=== PATIENT | female | born 1980 | race Caucasian/White ===

== ENCOUNTER 2017-04-02 07:49 | Emergency (ER) | payer MEDICAID ==
[~2017-04-02] VITALS: Ht 160 cm; Wt 83.5 kg
[~2017-04-02 07:49] MED LIST: ASPI-664 PO; AZIT250T94 PO; CETI-240 PO; IBUP-1542 PO; POLY15DR42 BOTH EYES
[2017-04-02 07:51] VITALS: Ht 160 cm; Wt 83.5 kg
--- NOTE | 2017-04-02 08:29 | ERD ---
ER Documentation Chief Complaint Chief Complaint sorethroat x1 days, lump right side of neck HPI 37y/o female patient with no significant medical history,presents to the emergency department c/o sore throat, that started 1 day ago. pain is sharp, rated 7/10, radiated to neck and ears. The symptoms are associated with subjective fever, global headache and bilateral hand arthralgias. Denies chills , N/V/D. No history of previous episodes. Treatment attempted: None ROS SYSTEMIC symptoms: + fever, chills, no night sweats, no weight loss EYE symptoms: No blurred vision, no eye discharge OTOLARYNGEAL symptoms: HPI CARDIOVASCULAR symptoms: No chest pain or discomfort, no palpitations. PULMONARY symptoms: No dyspnea, no cough, no wheezing. GASTROINTESTINAL symptoms: No abdominal pain, no nausea, no vomiting, no diarrhea MUSCULOSKELETAL symptoms: No arthralgias, no muscle aches. NEUROLOGY symptoms: No confusion, no syncope, no numbness or tingling. SKIN no rashes All systems reviewed and are negative except as per history of present illness. Medications Home Meds Active Scripts Ibuprofen* (Motrin*) 600 Mg Tab, 600 MG PO Q8, #30 TAB Prov:NATALIA LUIS MD 04/02/17 Azithromycin* (Zithromax*) 250 Mg Tablet, 250 MG PO DAILY for 4 Days, TAB Prov:NATALIA LUIS MD 04/02/17 Ibuprofen* (Motrin*) 600 Mg Tab, 600 MG PO Q6, #30 TAB Prov:CARRIE CHAVIRA 05/02/16 Azithromycin* (Zithromax*) 250 Mg Tablet, 250 MG PO .SHIRACK DIRECTED, #6 TAB TAKE 500 MG (2 TABS) THE FIRST DAY THEN 250 MG (1 TAB) DAYS 2-5 Prov:CARRIE CHAVIRA 05/02/16 Artificial Tears* (Artificial Tears* Ophth) 15 ml Opht, 2 DROP BOTH EYES Q4 for DRY EYES for 7 Days, EA Prov:NAKUL BLANTON PA-C 09/19/15 Cetirizine Hcl* (Cetirizine Hcl*) 10 Mg Tablet, 10 MG PO DAILY, #30 TAB Prov:NAKUL BLANTON PA-C 09/19/15 Reported Medications Aspirin (Aspirin Low Dose) 81 Mg Tablet.dr, PO 10/23/11 Allergies Allergies: Coded Allergies: Penicillins (Verified Allergy, Mild, RASH, 10/23/11) PMhx/Soc History of Surgery: Yes (GALLBLADDER, ) Anesthesia Reaction: No Hx Neurological Disorder: No Hx Respiratory Disorders: No Hx Cardiac Disorders: No Hx Psychiatric Problems: No Hx Miscellaneous Medical Probl: No Hx Alcohol Use: No Hx Substance Use: No Hx Tobacco Use: No Smoking Status: Never smoker Physical Exam Vitals Vital Signs Date Time Temp Pulse Resp B/P Pulse Ox O2 Delivery O2 Flow Rate FiO2 04/02/17 07:51 100.2 89 18 140/81 98 Physical Exam Patient is in no acute distress, vital signs stable. Alert and fully oriented. EYES: PERRLA, EOMI, Sclera and conjunctiva appear normal. EARS: Canals clear, tympanic membranes WNL THROAT: Erythematous oropharynx, bilateral tonsillar enlargement with suppurative exudates NECK: Supple, + anterior tender lymphadenopathy. Full ROM without pain or tenderness. HEART: RRR, no rubs, murmurs, clicks or gallops. LUNGS: Clear to auscultation. ABDOMEN: Soft, non-tender without masses or hepatosplenomegaly. EXTREMITIES: No edema bilaterally. MUSC: Full ROM, no deformity, normal back exam Results 24 hrs Laboratory Tests Test 04/02/17 08:10 Monoscreen Negative Procedures/MDM 37y/o female patient, previously healthy, presents to the ED c/o sore throat, headache and fever for 3 days. Vital signs stable except for mild elevated temperature, Physical exam revealed bilateral tonsillar enlargement with exudate. Differential diagnosis include but not limited to: Tonsillitis viral/ bacterial, pharyngeal abscesses, tonsillar abscess, parotitis. Pertinent Data: Monospot negative Physical examination and clinical presentation consistent most likely with acute suppurative tonsillitis. During the ED course the patient remained stable, no new complaints. Results and medical impression discussed with patient who agrees with management. The patient will be discharged home with a Rx for azithromycin for 5 days and ibuprofen as needed for pain Side effects of prescribed NSAID medication (GI distress, edema, bleeding, HTN) were reviewed. If symptoms persist, worsen or new symptoms develop, then patient is instructed to follow-up with the primary care provider. If the patient is unable to see the primary care provider, then return to the ED immediately. Departure Diagnosis: Primary Impression: Acute suppurative tonsillitis Condition: Stable Additional Instructions: Muchas rinku por [facility] para roque servicio. Esperamos que en roque visita a la piper de emergencia roque problema medico haya sido solucionado y que se sienta mucho mejor. Para estar seguros que roque mejoria sigue en proceso, le pedimos el favor de hacer nancy vanessa de seguimiento medico con roque doctor primario en los proximos 2-4 nettles. Lleve con usted estos documentos y las medicinas recetadas. Si miriam sintomas empeoran y no puede aidee a roque doctor, por favor regrese a piper de emergencia. En kit que usted no tenga un mdico de atencin primaria: Llame al mdico o clnica comunitaria de referencia que aparece abajo morelia las horas de consultorio para hacer nancy vanessa para que le vean. CLINICAS: [facility] [phone] [facility] [phone] [facility]. [facility] [phone] [facility]. [facility] [phone] [facility]. [place] [id number] [phone] [facility]. [phone] MD Apr 02, 2017 08:29 NATALIA LUIS MD Apr 02, 2017 08:29
--- NOTE | 2017-04-02 08:29 | ERD ---
ER Documentation Chief Complaint Chief Complaint sorethroat x1 days, lump right side of neck HPI 37y/o female patient with no significant medical history,presents to the emergency department c/o sore throat, that started 1 day ago. pain is sharp, rated 7/10, radiated to neck and ears. The symptoms are associated with subjective fever, global headache and bilateral hand arthralgias. Denies chills , N/V/D. No history of previous episodes. Treatment attempted: None ROS SYSTEMIC symptoms: + fever, chills, no night sweats, no weight loss EYE symptoms: No blurred vision, no eye discharge OTOLARYNGEAL symptoms: HPI CARDIOVASCULAR symptoms: No chest pain or discomfort, no palpitations. PULMONARY symptoms: No dyspnea, no cough, no wheezing. GASTROINTESTINAL symptoms: No abdominal pain, no nausea, no vomiting, no diarrhea MUSCULOSKELETAL symptoms: No arthralgias, no muscle aches. NEUROLOGY symptoms: No confusion, no syncope, no numbness or tingling. SKIN no rashes All systems reviewed and are negative except as per history of present illness. Medications Home Meds Active Scripts Ibuprofen* (Motrin*) 600 Mg Tab, 600 MG PO Q8, #30 TAB Prov:NATALIA LUIS MD 04/02/17 Azithromycin* (Zithromax*) 250 Mg Tablet, 250 MG PO DAILY for 4 Days, TAB Prov:NATALIA LUIS MD 04/02/17 Ibuprofen* (Motrin*) 600 Mg Tab, 600 MG PO Q6, #30 TAB Prov:CARRIE CHAVIRA 05/02/16 Azithromycin* (Zithromax*) 250 Mg Tablet, 250 MG PO .SHIRACK DIRECTED, #6 TAB TAKE 500 MG (2 TABS) THE FIRST DAY THEN 250 MG (1 TAB) DAYS 2-5 Prov:CARRIE CHAVIRA 05/02/16 Artificial Tears* (Artificial Tears* Ophth) 15 ml Opht, 2 DROP BOTH EYES Q4 for DRY EYES for 7 Days, EA Prov:NAKUL BLANTON PA-C 09/19/15 Cetirizine Hcl* (Cetirizine Hcl*) 10 Mg Tablet, 10 MG PO DAILY, #30 TAB Prov:NAKUL BLANTON PA-C 09/19/15 Reported Medications Aspirin (Aspirin Low Dose) 81 Mg Tablet.dr, PO 10/23/11 Allergies Allergies: Coded Allergies: Penicillins (Verified Allergy, Mild, RASH, 10/23/11) PMhx/Soc History of Surgery: Yes (GALLBLADDER, ) Anesthesia Reaction: No Hx Neurological Disorder: No Hx Respiratory Disorders: No Hx Cardiac Disorders: No Hx Psychiatric Problems: No Hx Miscellaneous Medical Probl: No Hx Alcohol Use: No Hx Substance Use: No Hx Tobacco Use: No Smoking Status: Never smoker Physical Exam Vitals Vital Signs Date Time Temp Pulse Resp B/P Pulse Ox O2 Delivery O2 Flow Rate FiO2 04/02/17 07:51 100.2 89 18 140/81 98 Physical Exam Patient is in no acute distress, vital signs stable. Alert and fully oriented. EYES: PERRLA, EOMI, Sclera and conjunctiva appear normal. EARS: Canals clear, tympanic membranes WNL THROAT: Erythematous oropharynx, bilateral tonsillar enlargement with suppurative exudates NECK: Supple, + anterior tender lymphadenopathy. Full ROM without pain or tenderness. HEART: RRR, no rubs, murmurs, clicks or gallops. LUNGS: Clear to auscultation. ABDOMEN: Soft, non-tender without masses or hepatosplenomegaly. EXTREMITIES: No edema bilaterally. MUSC: Full ROM, no deformity, normal back exam Results 24 hrs Laboratory Tests Test 04/02/17 08:10 Monoscreen Negative Procedures/MDM 37y/o female patient, previously healthy, presents to the ED c/o sore throat, headache and fever for 3 days. Vital signs stable except for mild elevated temperature, Physical exam revealed bilateral tonsillar enlargement with exudate. Differential diagnosis include but not limited to: Tonsillitis viral/ bacterial, pharyngeal abscesses, tonsillar abscess, parotitis. Pertinent Data: Monospot negative Physical examination and clinical presentation consistent most likely with acute suppurative tonsillitis. During the ED course the patient remained stable, no new complaints. Results and medical impression discussed with patient who agrees with management. The patient will be discharged home with a Rx for azithromycin for 5 days and ibuprofen as needed for pain Side effects of prescribed NSAID medication (GI distress, edema, bleeding, HTN) were reviewed. If symptoms persist, worsen or new symptoms develop, then patient is instructed to follow-up with the primary care provider. If the patient is unable to see the primary care provider, then return to the ED immediately. Departure Diagnosis: Primary Impression: Acute suppurative tonsillitis Condition: Stable Additional Instructions: Muchas rinku por [facility] para roque servicio. Esperamos que en roque visita a la piper de emergencia roque problema medico haya sido solucionado y que se sienta mucho mejor. Para estar seguros que roque mejoria sigue en proceso, le pedimos el favor de hacer nancy vanessa de seguimiento medico con roque doctor primario en los proximos 2-4 nettles. Lleve con usted estos documentos y las medicinas recetadas. Si miriam sintomas empeoran y no puede aidee a roque doctor, por favor regrese a piper de emergencia. En kit que usted no tenga un mdico de atencin primaria: Llame al mdico o clnica comunitaria de referencia que aparece abajo morelia las horas de consultorio para hacer nancy vanessa para que le vean. CLINICAS: [facility] [phone] [facility] [phone] [facility]. [facility] [phone] [facility]. [facility] [phone] [facility]. [place] [phone] [facility]. [phone] MD Apr 02, 2017 08:29 NATALIA LUIS MD Apr 02, 2017 08:29
--- NOTE | 2017-04-02 08:29 | ERD ---
ER Documentation Chief Complaint Chief Complaint sorethroat x1 days, lump right side of neck HPI 37y/o female patient with no significant medical history,presents to the emergency department c/o sore throat, that started 1 day ago. pain is sharp, rated 7/10, radiated to neck and ears. The symptoms are associated with subjective fever, global headache and bilateral hand arthralgias. Denies chills , N/V/D. No history of previous episodes. Treatment attempted: None ROS SYSTEMIC symptoms: + fever, chills, no night sweats, no weight loss EYE symptoms: No blurred vision, no eye discharge OTOLARYNGEAL symptoms: HPI CARDIOVASCULAR symptoms: No chest pain or discomfort, no palpitations. PULMONARY symptoms: No dyspnea, no cough, no wheezing. GASTROINTESTINAL symptoms: No abdominal pain, no nausea, no vomiting, no diarrhea MUSCULOSKELETAL symptoms: No arthralgias, no muscle aches. NEUROLOGY symptoms: No confusion, no syncope, no numbness or tingling. SKIN no rashes All systems reviewed and are negative except as per history of present illness. Medications Home Meds Active Scripts Ibuprofen* (Motrin*) 600 Mg Tab, 600 MG PO Q8, #30 TAB Prov:NATALIA LUIS MD 04/02/17 Azithromycin* (Zithromax*) 250 Mg Tablet, 250 MG PO DAILY for 4 Days, TAB Prov:NATALIA LUIS MD 04/02/17 Ibuprofen* (Motrin*) 600 Mg Tab, 600 MG PO Q6, #30 TAB Prov:CARRIE CHAVIRA 05/02/16 Azithromycin* (Zithromax*) 250 Mg Tablet, 250 MG PO .SHIRACK DIRECTED, #6 TAB TAKE 500 MG (2 TABS) THE FIRST DAY THEN 250 MG (1 TAB) DAYS 2-5 Prov:CARRIE CHAVIRA 05/02/16 Artificial Tears* (Artificial Tears* Ophth) 15 ml Opht, 2 DROP BOTH EYES Q4 for DRY EYES for 7 Days, EA Prov:NAKUL BLANTON PA-C 09/19/15 Cetirizine Hcl* (Cetirizine Hcl*) 10 Mg Tablet, 10 MG PO DAILY, #30 TAB Prov:NAKUL BLANTON PA-C 09/19/15 Reported Medications Aspirin (Aspirin Low Dose) 81 Mg Tablet.dr, PO 10/23/11 Allergies Allergies: Coded Allergies: Penicillins (Verified Allergy, Mild, RASH, 10/23/11) PMhx/Soc History of Surgery: Yes (GALLBLADDER, ) Anesthesia Reaction: No Hx Neurological Disorder: No Hx Respiratory Disorders: No Hx Cardiac Disorders: No Hx Psychiatric Problems: No Hx Miscellaneous Medical Probl: No Hx Alcohol Use: No Hx Substance Use: No Hx Tobacco Use: No Smoking Status: Never smoker Physical Exam Vitals Vital Signs Date Time Temp Pulse Resp B/P Pulse Ox O2 Delivery O2 Flow Rate FiO2 04/02/17 07:51 100.2 89 18 140/81 98 Physical Exam Patient is in no acute distress, vital signs stable. Alert and fully oriented. EYES: PERRLA, EOMI, Sclera and conjunctiva appear normal. EARS: Canals clear, tympanic membranes WNL THROAT: Erythematous oropharynx, bilateral tonsillar enlargement with suppurative exudates NECK: Supple, + anterior tender lymphadenopathy. Full ROM without pain or tenderness. HEART: RRR, no rubs, murmurs, clicks or gallops. LUNGS: Clear to auscultation. ABDOMEN: Soft, non-tender without masses or hepatosplenomegaly. EXTREMITIES: No edema bilaterally. MUSC: Full ROM, no deformity, normal back exam Results 24 hrs Laboratory Tests Test 04/02/17 08:10 Monoscreen Negative Procedures/MDM 37y/o female patient, previously healthy, presents to the ED c/o sore throat, headache and fever for 3 days. Vital signs stable except for mild elevated temperature, Physical exam revealed bilateral tonsillar enlargement with exudate. Differential diagnosis include but not limited to: Tonsillitis viral/ bacterial, pharyngeal abscesses, tonsillar abscess, parotitis. Pertinent Data: Monospot negative Physical examination and clinical presentation consistent most likely with acute suppurative tonsillitis. During the ED course the patient remained stable, no new complaints. Results and medical impression discussed with patient who agrees with management. The patient will be discharged home with a Rx for azithromycin for 5 days and ibuprofen as needed for pain Side effects of prescribed NSAID medication (GI distress, edema, bleeding, HTN) were reviewed. If symptoms persist, worsen or new symptoms develop, then patient is instructed to follow-up with the primary care provider. If the patient is unable to see the primary care provider, then return to the ED immediately. Departure Diagnosis: Primary Impression: Acute suppurative tonsillitis Condition: Stable Additional Instructions: Muchas rinku por [facility] [place]que [place]. Esperamos que en roque visita a la piper de emergencia roque problema medico haya sido solucionado y que se sienta mucho mejor. Para estar seguros que roque mejoria sigue en proceso, le pedimos el favor de hacer nancy vanessa de seguimiento medico con roque doctor primario en los proximos 2-4 nettles. Lleve con usted estos documentos y las medicinas recetadas. Si miriam sintomas empeoran y no puede aidee a roque doctor, por favor regrese a piper de emergencia. En kit que usted no tenga un mdico de atencin primaria: Llame al mdico o clnica comunitaria de referencia que aparece abajo morelia las horas de consultorio para hacer nancy vanessa para que le vean. CLINICAS: [facility] [phone] [facility] [phone] [facility] [phone] [address] [facility]. [facility] [phone] [facility]. [place] [phone] [facility]. [phone] MD Apr 02, 2017 08:29 NATALIA LUIS MD Apr 02, 2017 08:29
[2017-04-02] MEDS ORDERED: AZIT250T94 PO (09:30)
[2017-04-02] MEDS ORDERED: IBUP-1542 PO (09:30)
== END 2017-04-02 09:41 | disposition home or self-care (01) ==
LOC: FTE 07:49
DX: J03.90 Acute tonsillitis, unspecified (principal)
CPT/HCPCS: 36415; 86308; 87880; Z7502; 99283

== ENCOUNTER 2017-11-17 18:08 | Emergency (ER) | END 2017-11-17 21:12 | disposition home or self-care (01) ==